=== PATIENT | female | born 1950 | race Caucasian/White ===

== ENCOUNTER 2021-08-16 09:41 | Observation (INO) | payer OTHER ==
[~2021-08-16] VITALS: Ht 152.4 cm; Wt 108.9 kg
[2021-08-16 10:02] VITALS: BP 143/96
[2021-08-16] MEDS ORDERED: FUROSEMIDE 20 M20 MG PO (10:08)
[2021-08-16] MEDS ORDERED: VITAMIN D325 MC3 PO (10:09)
[2021-08-16] MEDS ORDERED: CRANBERRY-PROB1 EACH PO (10:09)
[2021-08-16] MEDS ORDERED: TURMERIC500 M2 PO (10:09)
[2021-08-16 13:39] LABS: ABSOLUTE EOSINOPHILS 0.1 thou/uL (0.0-0.7); ABSOLUTE LYMPHOCYTES 2.2 thou/uL (0.8-5.3); ABSOLUTE MONOCYTES 0.5 thou/uL (0.0-1.2); ABSOLUTE NEUTROPHILS 5.4 thou/uL (1.6-8.1); BASOPHILS 0.6 %; EOSINOPHILS 1.2 %; HEMATOCRIT 41.8 % (37.0-47.0); HEMOGLOBIN 13.3 gm/dL (12.0-15.0); LYMPHOCYTES 26.8 %; MCH 26.8 pg (26.0-34.0); MCHC 31.9 g/dL (28.0-37.0); MCV 83.9 fL (80.0-100.0); MPV 7.1 fl. (7.2-11.1); NUCLEATED RBCS 0 /100WBC; PLATELET COUNT* 253 thou/uL (150-400); POLYS 65.4 %; RBC 4.99 mil/uL (4.20-5.00); RDW-CV 16.2 % (10.5-14.5); WBC 8.2 thou/uL (4.0-11.0)
[2021-08-16 13:49] LABS: CALCIUM 9.7 mg/dL (8.5-10.1); CREATININE 1.1 mg/dL (0.6-1.3); POTASSIUM 3.7 mmol/L (3.5-5.1)
[2021-08-16 14:00] LABS: ALBUMIN 4.1 g/dL (3.4-5.0); TOTAL BILIRUBIN 0.7 mg/dL (<0.1-1.0)
--- NOTE | 2021-08-16 19:09 | EKG ---
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 : 1950 Requested By: Rashaad Mosqueda Order Number: [id number] MD: Zafar Lane Measurements Intervals [place] Rate: 132 P: AR: QRS: -47 QRSD: 122 T: -7 QT: 323 QTc: 479 Interpretive Statements Atrial fibrillation Right bundle branch block Inferior infarct, old Baseline wander in lead(s) V1 No previous ECG available for comparison Electronically Signed On 08-16-2021 19:09:22 JEWELRY ENGRAVER by Zafar Lane [email or web address] <ELECTRONICALLY SIGNED> By: Zafar Lane MD, FACC 08/16/21 [address] MD, [facility] /EPI
[2021-08-16 21:00] VITALS: BP 135/61
[2021-08-17] VITALS (8 sets, daily range): BP systolic 106–145; BP diastolic 67–85
--- NOTE | 2021-08-17 02:44 | NUR ---
PT ADMIT TO ROOM 227. A&OX4. UP WITH STAND BY ASSIST. CARDIZEM QTT AT 5MG/HR. NS AT 100MLS/HR. BUILDING SERVICES ENGINEER TRACING AFIB BBB.
[2021-08-17] MEDS ORDERED: ELIQUIS5 MG PO (13:20)
[2021-08-17] MEDS ORDERED: CARDIZEM60 MG PO (13:20)
[2021-08-17] MEDS ORDERED: CARDIZEM CD 18180 M3 PO ×2 (15:59→17:24)
--- NOTE | 2021-08-17 18:55 | NUR ---
PT TRANSITIONED TO ORAL CARDIZEM. DISCHARGE ORDERS RECEIVED. DISCHARGE INSTRUCTIONS, CARE NOTES, E SCRIPTS AND FOLLOW UP APPTS GIVEN TO PT. PT COMMUNICATES UNDERSTANDING OF DISCHARGE TEACHING. IV AND AUTOMOTIVE PAINTER REMOVED. PT DISCHARGED WITH ALL BELONGINGS AND PAPERWORK VIA WHEELCHAIR WITH NURSING STAFF TO SPOUSE OWN PERSONAL VEHICLE.
--- NOTE | 2021-08-19 11:47 | CON ---
[address] [address] CONSULTATION Name: MARCELA COX Room: [address] Hyun Mace#: [id number] Admission: 08/16/21 Attend Phys: Yuniel Grijalva Discharge: 08/17/21 Date of : 48 Report #: [id number] THIS REPORT FOR: cc: Physician not on staff Physician not on staff Zafar Lane MD [facility] ~ DATE OF CONSULTATION: 08/16/2021 CARDIOLOGY CONSULTATION HISTORY OF PRESENT ILLNESS: The patient is a 70-year-old white female who I was asked to see in the Emergency Room today after she was noted to be in atrial fibrillation. Unfortunately, no old records available. The patient receives her care at [facility]. She notes that September of last year, she presented to [place] and was found to have atrial fibrillation. She was not cardioverted. She did have an echocardiogram. She was placed on metoprolol for rate control. Xarelto was too expensive and she did not want to take warfarin. Therefore, she took just an aspirin a day. She quit taking metoprolol a couple days ago when she read the side effects online. For the past couple of weeks, she has had increasing shortness of breath and some edema. She noticed her heart rate was increasing. Her brought her into the Emergency Room and she was noted to be in rapid atrial fibrillation. She denies any chest pain, fever, cough. She has had some edema. She has had no syncope. PAST MEDICAL HISTORY: She has had ankle surgery, , hypertension. CURRENT MEDICATIONS: Her only medications include metoprolol and aspirin. FAMILY HISTORY: Negative for heart disease. SOCIAL HISTORY: She is . She and her live in [place]. She works out at a gym. No smoking, alcohol abuse. REVIEW OF SYSTEMS: She is overweight, being 5 feet tall, 240 pounds. She does snore at night. No history of asthma, liver disease, bleeding, kidney disease, cancer, psychiatric illness, chronic skin condition. PHYSICAL EXAMINATION: GENERAL: Revealed an elderly female who appeared in no acute distress. VITAL SIGNS: She had a blood pressure of 130/80, pulse is 100. She was afebrile. HEENT: She was anicteric. Conjunctivae pink. Mucosa moist. NECK: Veins nondistended. No carotid bruits. Neck supple. CHEST: Clear to auscultation. CARDIAC: Irregular, tachycardia. [place] [address] CONSULTATION Name: MARCELA COX Room: [address] Hyun Mace#: [id number] Admission: 08/16/21 Attend Phys: Yuniel Grijalva Discharge: 08/17/21 Date of : 48 Report #: [id number] ABDOMEN: Obese. EXTREMITIES: Had no pitting edema. SKIN: Cool and dry. NEUROLOGIC: Nonfocal. LABORATORY DATA: ECG shows atrial fibrillation with a rapid ventricular response rate and a right bundle-branch block. Her workup in the Emergency Room, potassium 3.7, creatinine 1.1. High sensitivity troponin was 113. BNP 2073. Hematocrit 41.8. COVID antigen stat test was negative and she has not had the vaccine. IMPRESSION AND RECOMMENDATIONS: 1. Permanent atrial fibrillation. I would use diltiazem for rate control. I would anticoagulate with Xarelto. 2. Hypertension. The patient is on beta-dawn. 3. Obesity. 4. Snoring at night. I would consider sleep apnea. <ELECTRONICALLY SIGNED> By: Zafar Lane MD, FACC 08/19/[address] MD, FACC /nt
== END 2021-08-17 18:56 | disposition home or self-care (01) ==
LOC: M.ERS 09:41 → M.TBA-ER 15:21 → M.2W 08-17 01:30
PROVIDERS: Physician Assistant; ADMIT Internal Medicine; ATTEND Internal Medicine
DX: I48.20 Chronic atrial fibrillation, unspecified (principal); Z20.822 Contact with and (suspected) exposure to COVID-19; G47.33 Obstructive sleep apnea (adult) (pediatric); I10 Essential (primary) hypertension; E66.2 Morbid (severe) obesity with alveolar hypoventilation; I45.10 Unspecified right bundle-branch block; Z79.82 Long term (current) use of aspirin; Z79.899 Other long term (current) drug therapy